=== PATIENT | female | born 1990 | race Caucasian/White ===

== ENCOUNTER → 2020-06-10 14:59 | Outpatient (BNVA) | payer SELFPAY | PROVIDERS: Visit Provider Nurse Practitioner Family | DX: R39.9 Unspecified symptoms and signs involving the genitourinary system (principal); N39.0 Urinary tract infection, site not specified; N30.00 Acute cystitis without hematuria | CPT/HCPCS: 81003; 87077; 87086; 87184 ==

== ENCOUNTER → 2021-03-25 11:03 | Outpatient (BNVA) | payer OTHER, SELFPAY | PROVIDERS: Visit Provider Nurse Practitioner | DX: S99.921A Unspecified injury of right foot, initial encounter (principal); X58.XXXA Exposure to other specified factors, initial encounter; M79.671 Pain in right foot | CPT/HCPCS: 73630 ==

== ENCOUNTER → 2021-03-28 09:31 | Outpatient (BNVA) | payer OTHER, SELFPAY | PROVIDERS: PCP Nurse Practitioner Family; Visit Provider Nurse Practitioner Family | DX: M79.671 Pain in right foot (principal); M25.571 Pain in right ankle and joints of right foot | CPT/HCPCS: 73610; 73630 ==

== ENCOUNTER → 2021-10-01 11:59 | Outpatient (BNVA) | payer MEDICAID, SELFPAY | PROVIDERS: PCP Nurse Practitioner Family; Visit Provider Nurse Practitioner | DX: N92.1 Excessive and frequent menstruation with irregular cycle (principal); E66.01 Morbid (severe) obesity due to excess calories; R51.9 Headache, unspecified | CPT/HCPCS: 85025 ==

== ENCOUNTER → 2023-04-28 10:36 | Outpatient (BNVA) | payer OTHER, MEDICAID, SELFPAY | PROVIDERS: PCP Nurse Practitioner Family; Visit Provider Nurse Practitioner Family | DX: M54.9 Dorsalgia, unspecified (principal) | CPT/HCPCS: 81000 ==

== ENCOUNTER → 2023-12-29 10:20 | Outpatient (BNVA) | payer OTHER, MEDICAID, SELFPAY | PROVIDERS: PCP Nurse Practitioner Family; Visit Provider Nurse Practitioner | DX: E66.01 Morbid (severe) obesity due to excess calories (principal) | CPT/HCPCS: 80053; 84443; 85025 ==

== ENCOUNTER → 2024-07-25 09:27 | Outpatient (BNVA) | payer OTHER, MEDICAID, SELFPAY | PROVIDERS: PCP Nurse Practitioner; Visit Provider Nurse Practitioner | DX: R30.0 Dysuria (principal) | CPT/HCPCS: 81000; 81003; 87086 ==

== ENCOUNTER 2024-10-03 10:52 | Outpatient (CLI) | payer OTHER, MEDICAID, SELFPAY ==
--- NOTE | 2024-10-03 11:30 | MM_ITS ---
WS: [id number] DIAGNOSTIC BILATERAL DIGITAL BREAST TOMOSYNTHESIS MAMMOGRAPHY WITH CAD Bilateral breast ultrasound, limited HISTORY: N63.20 - Unspecified lump in the left breast, unspecified... COMPARISON: None available. TECHNIQUE: Bilateral craniocaudad, mediolateral oblique, and mediolateral views are submitted with tomosynthesis and SM. Spot compression LEFT CC and MLO. Computer aided detection utilized. Breast composition: The breasts are heterogeneously dense, which may obscure small masses. Scattered asymmetries throughout each breast. Triangular marker is placed over the palpable mass near 12:00 in the LEFT breast. There is an ovoid high density mass measuring 1.3 x 2.4 x 2.2 cm at a middle depth. There is a smaller mass RIGHT breast 10:00 measuring 0.7 x 0.4 x 0.5 cm at a middle depth. Asymmetry along the inframammary fold, greatest laterally. Bilateral breast ultrasound, limited. RIGHT breast: No abnormalities noted in the RIGHT breast. LEFT breast: Lobulated hypoechoic, mixed echogenic mass at 12:00, 8 cm from the nipple. Mass measures 1.3 x 1.2 x 2.2 cm and corresponds to the mammographic and palpable abnormality. MM/MM diag BI tomosynthesis [id number] IMPRESSION: BI-RADS: 4 - Suspicious Finding - Biopsy Should Be Considered FOLLOW UP: Biopsy Recommended Ultrasound-guided biopsy recommended LEFT breast mass at 12:00. Notified Orlin Baer NP at 10/03/2024 12:10 PM.
--- NOTE | 2024-10-03 11:45 | US_ITS ---
WS: [id number] DIAGNOSTIC BILATERAL DIGITAL BREAST TOMOSYNTHESIS MAMMOGRAPHY WITH CAD Bilateral breast ultrasound, limited HISTORY: N63.20 - Unspecified lump in the left breast, unspecified... COMPARISON: None available. TECHNIQUE: Bilateral craniocaudad, mediolateral oblique, and mediolateral views are submitted with tomosynthesis and SM. Spot compression LEFT CC and MLO. Computer aided detection utilized. Breast composition: The breasts are heterogeneously dense, which may obscure small masses. Scattered asymmetries throughout each breast. Triangular marker is placed over the palpable mass near 12:00 in the LEFT breast. There is an ovoid high density mass measuring 1.3 x 2.4 x 2.2 cm at a middle depth. There is a smaller mass RIGHT breast 10:00 measuring 0.7 x 0.4 x 0.5 cm at a middle depth. Asymmetry along the inframammary fold, greatest laterally. Bilateral breast ultrasound, limited. RIGHT breast: No abnormalities noted in the RIGHT breast. LEFT breast: Lobulated hypoechoic, mixed echogenic mass at 12:00, 8 cm from the nipple. Mass measures 1.3 x 1.2 x 2.2 cm and corresponds to the mammographic and palpable abnormality. US/US breast BI limited* [id number] IMPRESSION: BI-RADS: 4 - Suspicious Finding - Biopsy Should Be Considered FOLLOW UP: Biopsy Recommended Ultrasound-guided biopsy recommended LEFT breast mass at 12:00. Notified Orlin Baer NP at 10/03/2024 12:10 PM.
== END 2024-10-03 10:53 | disposition home or self-care (01) ==
PROVIDERS: PCP Nurse Practitioner; Visit Provider Clinical Nurse Specialist Adult Health
DX: N63.25 Unspecified lump in the left breast, overlapping quadrants (principal)
CPT/HCPCS: 76642; 77062; G0279

== ENCOUNTER 2024-10-11 11:04 | Outpatient (CLI) | payer OTHER, MEDICAID, SELFPAY ==
--- NOTE | 2024-10-11 11:45 | US_ITS ---
WS: [id number] ULTRASOUND-GUIDED LEFT BREAST BIOPSY CLINICAL INFORMATION: N63.21 - Unspecified lump in the left breast, upper outer... FINDINGS: The procedure including risks, benefits, and complications were discussed with the patient who agreed to proceed. Using sterile technique patient was prepped and draped in the usual sterile fashion. After 1% lidocaine utilizing real-time ultrasound guidance 7 14-gauge cores were obtained of the LEFT breast lesion at the 12 o'clock position 8 cm from the nipple. Subsequently a titanium clip was placed in the biopsy cavity. No immediate complications. US/[id number] IMPRESSION: 1. Uncomplicated ultrasound-guided LEFT breast biopsy. 2. The pathology demonstrates changes favoring fibroadenoma. No malignancy ladi ntified. 3. Findings are benign. Recommend annual screening mammography age 40 DENSITY: The breasts are heterogeneously dense, which may obscure small masses. BI-RADS: 2 - Benign FOLLOW UP: Age 40
== END 2024-10-11 11:05 | disposition home or self-care (01) ==
PROVIDERS: PCP Nurse Practitioner; Visit Provider Clinical Nurse Specialist Adult Health
DX: N63.25 Unspecified lump in the left breast, overlapping quadrants (principal); D24.2 Benign neoplasm of left breast
CPT/HCPCS: 19083; 88305

== ENCOUNTER → 2024-12-11 15:02 | Outpatient (BNVA) | payer OTHER, MEDICAID, SELFPAY | PROVIDERS: PCP Nurse Practitioner; Visit Provider Nurse Practitioner | DX: Z13.6 Encounter for screening for cardiovascular disorders (principal) | CPT/HCPCS: 80053; 80061 ==